=== PATIENT | female | born 1980 | race Caucasian/White ===

== ENCOUNTER 2016-10-10 09:43 | Emergency (ER) | payer BC ==
[~2016-10-10] VITALS: Ht 167.6 cm; Wt 68.0 kg
[~2016-10-10 09:43] MED LIST: CEPH500C3 PO; Z.0.BCPILL PO
[2016-10-10 09:46] VITALS: BP 122/89; PULSE 86; RESP 16; TEMP 97.8; O2SAT 98
--- NOTE | 2016-10-10 11:22 | PD ---
HPI Chief Complaint: Seizure Stated Complaint: POSS SEIZURE Time Seen by Provider: 11:20 Travel History International Travel<30 days: No Contact w/Intl Traveler<30days: No Known affected area: No History of Present Illness HPI 36-year-old female with history of seizure disorder as a child, presents to emergency department for evaluation of possible seizure this morning. Patient states that was on 6:30 AM when she got up to go the restroom. She states the next thing she knows her found her on the ground. She is uncertain of incontinence simply because she was on the toilet. She did not bite her tongue. She states that she has not felt well since the accident. Unknown but states she is trying to get . Patient does have PCO at the last menstrual spotting was in August History Social History Alcohol Use: Yes (socially) Tobacco Use: No Allergies-Medications (Allergen,Severity, Reaction): Coded Allergies: Percocet (Verified Allergy, Severe, HIVES, 04/06/15) Reported Meds & Prescriptions Reported Meds & Active Scripts Active Keflex (Cephalexin Monohydrate) 500 Mg Cap 500 Mg PO QID Reported Control Pills (Miscellaneous Medication) Tab 1 Tab PO DAILY Review of Systems Except as stated in HPI: all other systems reviewed are Neg Physical Exam Narrative GENERAL: Well-nourished female patient, ambulatory with a nonantalgic gait, in no acute distress SKIN: Warm and dry. HEAD: Atraumatic. Normocephalic. EYES: No scleral icterus. No injection or drainage. EOMI. PERRL ENT: No nasal bleeding or discharge. Mucous membranes pink and moist. NECK: Trachea midline. No JVD. CARDIOVASCULAR: Regular rate and rhythm. No murmur appreciated. RESPIRATORY: No accessory muscle use. Clear to auscultation. Breath sounds equal bilaterally. GASTROINTESTINAL: Abdomen soft, non-tender, nondistended. Hepatic and splenic margins not palpable. MUSCULOSKELETAL: No obvious deformities. No clubbing. No cyanosis. No edema. NEUROLOGICAL: Awake and alert. No obvious cranial nerve deficits. Motor grossly within normal limits. Normal speech. PSYCHIATRIC: Appropriate mood and affect; insight and judgment normal. Data Data Last Documented VS Vital Signs Date Time Temp Pulse Resp B/P Pulse Ox O2 Delivery O2 Flow Rate FiO2 10/10/16 09:46 97.8 86 16 122/89 98 Room Air Orders Blood Glucose (10/10/16 09:57) Oximetry (10/10/16 09:57) Iv Access Insert/Monitor (10/10/16 09:57) Ecg Monitoring (10/10/16 09:57) Oxygen Administration (10/10/16 09:57) Basic Metabolic Panel (Bmp) (10/10/16 09:57) Electrocardiogram (10/10/16 ) Ed Urine Pregnancytest Poc (10/10/16 09:59) Complete Blood Count With Diff (10/10/16 11:18) Ct Brain W/O Iv Contrast(Rout) (10/10/16 ) Mri Brain W&W/O Contrast (10/10/16 ) Labs Laboratory Tests Test 10/10/16 11:10 White Blood Count 7.5 TH/MM3 Red Blood Count 4.56 MIL/MM3 Hemoglobin 13.8 GM/DL Hematocrit 41.3 % Mean Corpuscular Volume 90.5 FL Mean Corpuscular Hemoglobin 30.3 PG Mean Corpuscular Hemoglobin 33.5 % Concent Red Cell Distribution Width 12.8 % Platelet Count 442 TH/MM3 Mean Platelet Volume 7.4 FL Neutrophils (%) (Auto) 76.5 % Lymphocytes (%) (Auto) 18.5 % Monocytes (%) (Auto) 3.8 % Eosinophils (%) (Auto) 0.5 % Basophils (%) (Auto) 0.7 % Neutrophils # (Auto) 5.8 TH/MM3 Lymphocytes # (Auto) 1.4 TH/MM3 Monocytes # (Auto) 0.3 TH/MM3 Eosinophils # (Auto) 0.0 TH/MM3 Basophils # (Auto) 0.1 TH/MM3 CBC Comment DIFF FINAL Differential Comment Sodium Level 136 MEQ/L Potassium Level 4.2 MEQ/L Chloride Level 100 MEQ/L Carbon Dioxide Level 25.6 MEQ/L Anion Gap 10 MEQ/L Blood Urea Nitrogen 11 MG/DL Creatinine 0.64 MG/DL Estimat Glomerular Filtration 106 ML/MIN Rate Random Glucose 83 MG/DL Calcium Level 10.1 MG/DL [facility] Medical Decision Making Medical Screen Exam Complete: Yes Emergency Medical Condition: Yes Medical Record Reviewed: Yes Differential Diagnosis Seizure versus syncope versus near-syncope versus electrolyte abnormality Narrative Course 36-year-old female presents to emergency department for evaluation of possible seizure. Patient has not had a seizure in 15 years and is not currently on any medication. She appears well and without distress. Neuro exam is nonfocal. Workup is initiated in triage. CBC and BMP are without acute concern. CT imaging of the brain is without acute intracranial abnormality and MRI with and without contrast is recommended by radiology. I discussed this with the patient. This is ordered. Once a medical bed becomes available, patient will be transferred and care will be assumed by the provider in that pod. Diagnosis Primary Impression: History of seizure Condition: Stable Svetlana Brunner Oct 10, 2016 11:22
[2016-10-10 11:50] LABS: AUTOMATED NEUTROPHIL # 5.8 TH/MM3 (1.8-7.7); BASOPHIL # 0.1 TH/MM3 (0-0.2); BASOPHIL % 0.7 % (0.0-2.0); EOSINOPHIL % 0.5 % (0.0-4.0); HEMATOCRIT 41.3 % (35.0-46.0); HEMO FLAGS DIFF FINAL; LYMPH % 18.5 % (9.0-44.0); LYMPHOCYTE # 1.4 TH/MM3 (1.0-4.8); MEAN CELL VOLUME 90.5 FL (80.0-100.0); MEAN CORPUSCULAR HEMOGLOBIN 30.3 PG (27.0-34.0); MEAN CORPUSCULAR HGB CONC 33.5 % (32.0-36.0); MONO % 3.8 % (0.0-8.0); NEUT % 76.5 % (16.0-70.0); PLATELET COUNT 442 TH/MM3 (150-450); RED BLOOD COUNT 4.56 MIL/MM3 (4.00-5.30); RED CELL DISTRIBUTION WIDTH 12.8 % (11.6-17.2); WHITE BLOOD COUNT 7.5 TH/MM3 (4.0-11.0)
[2016-10-10 12:06] LABS: BICARBONATE 25.6 MEQ/L (21.0-32.0); POTASSIUM 4.2 MEQ/L (3.5-5.1)
--- NOTE | 2016-10-10 12:20 | EKG ---
Date Performed: 10/10/2016 Time Performed: 11:00:01 PTAGE: 36 years EKG: Sinus rhythm NORMAL ECG PREVIOUS TRACING : 09/17/2014 11.37 DOCTOR: Misael Leyva Interpretating Date/Time 10/10/2016 12:19:24
--- NOTE | 2016-10-10 12:29 | RADRPT ---
EXAM DATE/TIME: 10/10/2016 12:14 [facility] COMPARISON: No previous studies available for comparison. INDICATIONS : Possible seizure. RADIATION DOSE: 56.35 CTDIvol (mGy) MEDICAL HISTORY : None SURGICAL HISTORY : None. ENCOUNTER: Initial ACUITY: 1 day PAIN SCALE: 0/10 LOCATION: cranial TECHNIQUE: Multiple contiguous axial images were obtained of the head. Using automated exposure control and adj ustment of the mA and/or kV according to patient size, radiation dose was kept as low as reasonably a chievable to obtain optimal diagnostic quality images. FINDINGS: CEREBRUM: The ventricles are normal for age. No evidence of midline shift, mass lesion, hemorrhage or acute in farction. No extra-axial fluid collections are seen. POSTERIOR FOSSA: The cerebellum and brainstem are intact. The 4th ventricle is midline. The cerebellopontine angle i s unremarkable. EXTRACRANIAL: The visualized portion of the orbits is intact. SKULL: The calvaria is intact. No evidence of skull fracture. CONCLUSION: Negative. MRI of the brain without and with contrast is suggested. Liborio Mcfarlane MD FACR on October 10, 2016 at 12:27 Board Certified Radiologist. This report was verified electronically.
[2016-10-10 13:12] VITALS: O2SAT 98
[2016-10-10] MEDS ORDERED: GADODIAMIDE PF 287 MG/ML 5 ML VIAL (for RAD MRI) IV ONE (13:50)
--- NOTE | 2016-10-10 14:02 | RADRPT ---
EXAM DATE/TIME: 10/10/2016 13:07 [facility] COMPARISON: No previous studies available for comparison. INDICATIONS : Seizures. CONTRAST: 13 cc Omniscan (gadodiamide) IV MEDICAL HISTORY : Seizures. SURGICAL HISTORY : Cholecystectomy. ENCOUNTER: Subsequent ACUITY: 1 day PAIN SCORE: 0/10 LOCATION: head. TECHNIQUE: Multiplanar, multisequence MRI of the brain was performed both prior to and following the administrat ion of paramagnetic contrast. FINDINGS: CEREBRUM: The ventricles are normal for age. No evidence of midline shift, mass lesion, hemorrhage or acute in farction. No extraaxial fluid collections are seen. The pituitary gland and suprasellar cistern are normal in configuration. WHITE MATTER: No significant signal abnormalities are seen in the white matter. POSTERIOR FOSSA: The cerebellum and brainstem are intact. The 4th ventricle is midline. The cerebellopontine angle is unremarkable. The cerebellar tonsils are normal in position. DIFFUSION IMAGING: No focal areas of restricted diffusion are seen. No evidence of acute infarction. EXTRACRANIAL: The visualized portions of the orbits and paranasal sinuses are unremarkable. POST-CONTRAST: No abnormal areas of parenchymal or dural enhancement. No evidence of blood-brain barrier breakdown. CONCLUSION: Normal examination. Juan Weiss MD on October 10, 2016 at 13:57 Board Certified Radiologist. This report was verified electronically.
[2016-10-10 14:07] VITALS: BP 116/73; PULSE 82; RESP 16; TEMP 97.8; O2SAT 98
[2016-10-10] MEDS ORDERED: ZANT150T2 PO (14:13)
--- NOTE | 2016-10-10 14:14 | PD ---
Data Data Last Documented VS Vital Signs Date Time Temp Pulse Resp B/P Pulse Ox O2 Delivery O2 Flow Rate FiO2 10/10/16 14:08 98 Room Air 10/10/16 14:07 97.8 82 16 116/73 Orders Blood Glucose (10/10/16 09:57) Oximetry (10/10/16 09:57) Iv Access Insert/Monitor (10/10/16 09:57) Ecg Monitoring (10/10/16 09:57) Oxygen Administration (10/10/16 09:57) Basic Metabolic Panel (Bmp) (10/10/16 09:57) Electrocardiogram (10/10/16 ) Ed Urine Pregnancytest Poc (10/10/16 09:59) Complete Blood Count With Diff (10/10/16 11:18) Ct Brain W/O Iv Contrast(Rout) (10/10/16 ) Mri Brain W&W/O Contrast (10/10/16 ) Gadodiamide Pf Inj (Omniscan Pf Inj) (10/10/16 13:50) Labs Laboratory Tests Test 10/10/16 11:10 White Blood Count 7.5 TH/MM3 Red Blood Count 4.56 MIL/MM3 Hemoglobin 13.8 GM/DL Hematocrit 41.3 % Mean Corpuscular Volume 90.5 FL Mean Corpuscular Hemoglobin 30.3 PG Mean Corpuscular Hemoglobin 33.5 % Concent Red Cell Distribution Width 12.8 % Platelet Count 442 TH/MM3 Mean Platelet Volume 7.4 FL Neutrophils (%) (Auto) 76.5 % Lymphocytes (%) (Auto) 18.5 % Monocytes (%) (Auto) 3.8 % Eosinophils (%) (Auto) 0.5 % Basophils (%) (Auto) 0.7 % Neutrophils # (Auto) 5.8 TH/MM3 Lymphocytes # (Auto) 1.4 TH/MM3 Monocytes # (Auto) 0.3 TH/MM3 Eosinophils # (Auto) 0.0 TH/MM3 Basophils # (Auto) 0.1 TH/MM3 CBC Comment DIFF FINAL Differential Comment Sodium Level 136 MEQ/L Potassium Level 4.2 MEQ/L Chloride Level 100 MEQ/L Carbon Dioxide Level 25.6 MEQ/L Anion Gap 10 MEQ/L Blood Urea Nitrogen 11 MG/DL Creatinine 0.64 MG/DL Estimat Glomerular Filtration 106 ML/MIN Rate Random Glucose 83 MG/DL Calcium Level 10.1 MG/DL MDM Supervised Visit with TOAN: Yes Narrative Course The history, exam, and medical decision-making in the associated midlevel provider note were completed with my assistance. I reviewed and agree with the findings presented. I attest that I had a [id number] encounter with the patient on the same day, and personally performed and documented my assessment and findings in the medical record. *My assessment and Findings: This is a 36-year-old female who presents to the emergency department having had an episode of syncope versus seizure this morning. She has a history of childhood seizures but currently is not on any seizure medication. She had labs performed which are reassuring, head CT and MRI imaging all of which is reassuring. Her description of her symptoms is more consistent with syncope. I still think she should follow with a neurologist given her seizure history. Patient was discharged home and told to avoid driving another risky behaviors while at risk of seizure. Diagnosis Primary Impression: Syncope Qualified Code: R55 - Syncope, unspecified syncope type Referrals: Skyler Garcia MD Patient Instructions: General Instructions Additional Instruction: If you develop severe worsening headache, persistent vomiting, numbness, weakness, difficulty walking or difficulty talking return to the emergency department immediately. Follow-up with a neurologist as soon as possible. Avoid driving, swimming and other activities that might be dangerous if he had a seizure during them. Med/Other Pt SpecificInfo: No Change to Meds Disposition: 01 DISCHARGE HOME Condition: Stable Vernell Silverio MD Oct 10, 2016 14:13
[2016-10-10 14:49] VITALS: BP 120/78; PULSE 85; RESP 16; TEMP 97.8; O2SAT 98
== END 2016-10-10 18:34 | disposition home or self-care (01) ==
LOC: NEPE 09:43
DX: R55 Syncope and collapse (principal); Z87.898 Personal history of other specified conditions; R56.9 Unspecified convulsions
CPT/HCPCS: 70450; 70553; 80048; 84703; 85025; 93005; 99284; A9579

== ENCOUNTER 2017-04-05 14:23 | Observation (INO) | payer BC ==
--- NOTE | 2017-04-05 15:26 | MH ---
cc: CONCEPCION JUAN MD DATE OF ADMISSION 04/05/2017 ADMITTING DIAGNOSIS 1. at 7 weeks. 2. Nausea and vomiting, possible gastroenteritis. HISTORY OF PRESENT ILLNESS The patient is a 37-year-old white female, para 1-0-0-1, LMP of 02/09/2017, EDC of 11/16/2017. Ultrasound obtained on 04/04/2017 showed a VIP consistent with her EDC. She had acute onset of nausea and vomiting at 9:30 p.m. on 04/04/2017 and awoke this morning of 05:00 with persistent nausea and vomiting. She has tried Zofran without relief, cannot keep down any solids or liquids, is now admitted for IV fluid hydration and for antiemetic therapy. She denies fever or flu-like illness. She had normal bowel function yesterday. MEDICATIONS 1. Vitamins. 2. Prometrium 200 milligrams p.o. b.i.d. ALLERGIES PERCOCET AND LEVAQUIN. TRANSFUSIONS None. OBSTETRICAL HISTORY One vaginal delivery at term 2014. Spontaneous 2016. No D&C. PAST SURGERIES Cholecystectomy 2004, ____ 2001. MEDICAL ILLNESS Seizure disorder early 2016, eval negative through neurologist. 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 Alcohol, tobacco and drugs are none. PHYSICAL EXAMINATION GENERAL: This is an ill appearing white female. VITAL SIGNS: Stable. HEENT: Exam within normal limits. CHEST: The was chest is clear. BREASTS: Symmetrical. ABDOMEN: Benign. PELVIC EXAMINATION: Vagina is normal. Cervix normal. Uterus 7 weeks' size, nontender. ASSESSMENT As above. PLAN She is now admitted for IV fluids, IV antiemetic therapy. Reviewed the indications for treatment, the patient would like to proceed. Concepcion Juan MD JAW/EO /3:04 PM /3:11 PM
[2017-04-05] MEDS ORDERED: ONDANSETRON HCL 4 MG/2 ML VIAL ONE (15:33)
[2017-04-05 15:38] VITALS: BP 110/65; PULSE 90; RESP 16; TEMP 98.6; O2SAT 98
[2017-04-05] MEDS: SODIUM CHLOR 0.9% 1000 ML INJ 1,000 ML IV ONE ×2 (16:30→18:19)
[2017-04-05] MEDS ORDERED: METOCLOPRAMIDE HCL 10 MG/2 ML VIAL IV PRN (16:45)
[2017-04-05] MEDS: D5-1/2 NS + KCL 20 MEQ INJ 1,000 ML IV SCH (16:54)
[2017-04-05] MEDS: ONDANSETRON HCL 4 MG/2 ML VIAL IV SCH ×2 (16:59→22:19)
[2017-04-05] MEDS ORDERED: NON-FORMULARY DRUG IM PRN (19:00)
[2017-04-05 19:45] VITALS: BP 102/55; PULSE 91; RESP 17; TEMP 98.7; O2SAT 98
[2017-04-05 22:37] LABS: AUTOMATED NEUTROPHIL # 9.7 TH/MM3 (1.8-7.7); BASOPHIL % 0.2 % (0.0-2.0); EOSINOPHIL % 0.1 % (0.0-4.0); HEMATOCRIT 33.7 % (35.0-46.0); HEMO FLAGS DIFF FINAL; LYMPH % 3.8 % (9.0-44.0); LYMPHOCYTE # 0.4 TH/MM3 (1.0-4.8); MEAN CELL VOLUME 89.7 FL (80.0-100.0); MEAN CORPUSCULAR HEMOGLOBIN 30.3 PG (27.0-34.0); MEAN CORPUSCULAR HGB CONC 33.8 % (32.0-36.0); MONO % 3.4 % (0.0-8.0); NEUT % 92.5 % (16.0-70.0); PLATELET COUNT 266 TH/MM3 (150-450); RED BLOOD COUNT 3.75 MIL/MM3 (4.00-5.30); RED CELL DISTRIBUTION WIDTH 12.4 % (11.6-17.2); WHITE BLOOD COUNT 10.5 TH/MM3 (4.0-11.0)
[2017-04-05 22:57] LABS: BICARBONATE 25.4 MEQ/L (21.0-32.0); POTASSIUM 3.7 MEQ/L (3.5-5.1)
[2017-04-05 23:10] LABS: CALCIUM-PROTEIN CORRECTED 7.8 MG/DL (8.5-10.1)
[2017-04-05 23:22] VITALS: BP 108/56; PULSE 87; RESP 17; TEMP 98.3; O2SAT 99
[2017-04-06] MEDS: D5-1/2 NS + KCL 20 MEQ INJ 1,000 ML IV SCH ×3 (00:26→13:55)
[2017-04-06 03:22] VITALS: BP 116/57; PULSE 78; RESP 17; TEMP 98; O2SAT 99
[2017-04-06] MEDS: ONDANSETRON HCL 4 MG/2 ML VIAL IV SCH ×2 (05:20→11:28)
[2017-04-06 07:58] VITALS: BP 94/53; PULSE 81; RESP 18; TEMP 98.2; O2SAT 98
[2017-04-06 11:21] VITALS: BP 93/51; PULSE 84; RESP 16; TEMP 98.3; O2SAT 98
--- NOTE | 2017-04-06 13:30 | HHI.DCPOC ---
Discharge Care Plan Report Symptoms to Your Doctor -Temperature above 100.5 degrees -Redness, of incision or excessive or foul smelling drainage -Unusual pain or calf pain -Increased vaginal bleeding -Painful or difficulty urinating -Feelings of extreme sadness or anxiety after 2 weeks Goals to Promote Your Health * To prevent worsening of your condition and complications * To maintain your health at the optimal level Directions to Meet Your Goals Take your medications as prescribed Follow your dietary instruction Follow activity as directed Ensure plenty of rest for recovery Drink fluids for hydration Keep your appointments as scheduled Take your immunizations and boosters as scheduled If your symptoms worsen call your PCP, if no PCP go to Urgent Care Center or Emergency Room Smoking is Dangerous to Your Health. Avoid second hand smoke Call the 24-hour crisis hotline for domestic abuse at Luis Phan MD Apr 06, 2017 13:30
== END 2017-04-06 14:40 | disposition home or self-care (01) ==
LOC: NEPHCDU 14:49
PROVIDERS: ADMIT Obstetrics & Gynecology; ATTEND Obstetrics & Gynecology
DX: O21.9 Vomiting of pregnancy, unspecified (principal); Z3A.01 Less than 8 weeks gestation of pregnancy
CPT/HCPCS: 80048; 82150; 84155; 85025; G0378; J2405; J3480; J7030

== ENCOUNTER → 2017-05-15 | Outpatient (CLI) | payer BC | LOC: HPND 09:32 | PROVIDERS: ATTEND Obstetrics & Gynecology | DX: O09.521 Supervision of elderly multigravida, first trimester (principal); O09.291 Supervision of pregnancy with other poor reproductive or obstetric history, first trimester | CPT/HCPCS: 36415; 76813 ==

== ENCOUNTER → 2017-06-26 | Outpatient (CLI) | payer BC | LOC: HPND 09:33 | PROVIDERS: ATTEND Obstetrics & Gynecology | DX: O09.522 Supervision of elderly multigravida, second trimester (principal); O09.292 Supervision of pregnancy with other poor reproductive or obstetric history, second trimester; O35.1XX0 Maternal care for (suspected) chromosomal abnormality in fetus, not applicable or unspecified; O24.410 Gestational diabetes mellitus in pregnancy, diet controlled | CPT/HCPCS: 76811 ==

== ENCOUNTER → 2017-07-24 | Outpatient (CLI) | payer BC | LOC: HPND 10:19 | PROVIDERS: ATTEND Obstetrics & Gynecology | DX: O24.410 Gestational diabetes mellitus in pregnancy, diet controlled (principal); O09.522 Supervision of elderly multigravida, second trimester; O35.1XX0 Maternal care for (suspected) chromosomal abnormality in fetus, not applicable or unspecified | CPT/HCPCS: 76816 ==

== ENCOUNTER → 2017-08-26 | Outpatient (CLI) | payer BC | LOC: HPND 09:18 | PROVIDERS: ATTEND Obstetrics & Gynecology | DX: O35.1XX0 Maternal care for (suspected) chromosomal abnormality in fetus, not applicable or unspecified (principal); O24.410 Gestational diabetes mellitus in pregnancy, diet controlled; O09.522 Supervision of elderly multigravida, second trimester | CPT/HCPCS: 76816 ==

== ENCOUNTER 2017-10-12 00:28 | Emergency (ER) | payer BC ==
[~2017-10-12] VITALS: Ht 167.6 cm; Wt 88.0 kg
[2017-10-12 00:28] VITALS: BP 147/77; PULSE 83; RESP 18; TEMP 97.7; O2SAT 99
[2017-10-12 01:07] VITALS: BP 116/78; PULSE 90
--- NOTE | 2017-10-12 01:28 | PD ---
HPI Chief Complaint Headache Date Seen: Oct 12, 2017 Time Seen: 01:20 Travel History International Travel<30 Days: No Contact w/Intl Traveler<30Days: No Known Affected Area: No History of Present Illness HPI 37-year-old 3 para 1 AB 1 at 35+ weeks gestation who comes tonight concerned that her blood pressure might be up because she has a headache. She has a history of elevated blood pressure in her prior . She also has a history of migraine headaches. She states this feels typical of her migraine headaches. She tried Tylenol at home without relief in addition to peppermint oil. She denies any visual changes, abdominal pain. No decreased movement, bleeding or discharge. History Past Medical History Medical History: Denies Significant Hx Obstetric History Obstetric History 1 term vaginal delivery, 1 SAB Gestational diabetes which is diet controlled, advanced maternal age Past Surgical History Narrative Surgical Cholecystectomy, breast augmentation Family History Family History: Negative Social History Alcohol Use: No Tobacco Use: No Substance Abuse: No Allergies-Medications (Allergen,Severity, Reaction): Coded Allergies: acetaminophen (Unverified Allergy, Severe, HIVES, 05/21/17) oxycodone (Unverified Allergy, Severe, HIVES, 05/21/17) levofloxacin (Verified Allergy, Unknown, 10/12/17) 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 SKIN: Warm and dry. HEAD: Normocephalic and atraumatic. EYES: No scleral icterus. No injection or drainage. ENT: No nasal drainage noted. Mucous membranes pink. Airway patent. NECK: Supple, trachea midline. No JVD. CARDIOVASCULAR: Regular rate and rhythm without murmurs, gallops, or rubs. RESPIRATORY: Breath sounds equal bilaterally. No accessory muscle use. ABDOMEN/GI: Abdomen soft, non-tender, bowel sounds present, no rebound, no guarding Gravid to [-] weeks size Fundal Height: [-] GENITOURINARY: External Genitalia: intact and normal in appearance BUS glands: [-] Cervix: [-] Dilatation: [-] Effacement: [-] Station: [-] Presentation: [-] Membranes: [intact or ruptured] Uterine Contractions: [-] FHT's: Category: [-1] Baseline: [-] Reactive: [Yes-] Variability: [-] Decels: [-] EXTREMITIES: No cyanosis or edema. BACK: Nontender without obvious deformity. No CVA tenderness. NEUROLOGICAL: Awake and alert. Motor and sensory grossly within normal limits. Five out of 5 muscle strength in all muscle groups. Normal speech. Data Data Vital Signs Reviewed: Yes Orders Orders Vital Signs (Adult) .ON ADMISSION (10/12/17 01:05) ^ Labor Status (10/12/17 01:05) Urinalysis - C+S If Indicated (10/12/17 01:05) ^ Non Stress Test (10/12/17 01:05) Protein Creat Ratio, Random Ur (10/12/17 01:05) [id number] 325-50-40 Mg (Fioricet 3 (10/12/17 01:30) MDM Medical Record Reviewed: Yes Narrative Course / MDM Assessment: 35 week intrauterine with migraine headache Plan: Fioricet 1 Diagnosis Diagnosis: Primary Impression: 35 weeks gestation of Additional Impression: Migraine headache Disposition: DISCHARGE HOME Condition: Good Scripts No Active Prescriptions or Reported Meds Misael Lobato MD Oct 12, 2017 01:28
[2017-10-12] MEDS ORDERED: ACETAMIN 325 MG/BUTALBITAL 50 MG/CAFFEINE 40 MG TAB PO ONE (01:30)
[2017-10-12 01:52] LABS: BACTERIA, URINE RARE /hpf; BILIRUBIN, URINE NEG (NEG); BLOOD, URINE NEG (NEG); GLUCOSE,URINE NEG (NEG); KETONE, URINE NEG (NEG); NITRITE,URINE NEG (NEG); PH, URINE 6.5 (5.0-8.5); SQUAMOUS EPITHELIAL CELL URINE 15 /hpf (0-5); URINE COLOR LIGHT-YELLOW (YELLW/STRAW); URINE LEUKOCYTE ESTERASE LARGE (NEG)
== END 2017-10-12 02:05 | disposition home or self-care (01) ==
LOC: HOBED 00:28
DX: O26.893 Other specified pregnancy related conditions, third trimester (principal); G43.909 Migraine, unspecified, not intractable, without status migrainosus; Z3A.35 35 weeks gestation of pregnancy; Z88.6 Allergy status to analgesic agent; Z88.5 Allergy status to narcotic agent; Z88.8 Allergy status to other drugs, medicaments and biological substances; Z34.93 Encounter for supervision of normal pregnancy, unspecified, third trimester
CPT/HCPCS: 81001; 82570; 84156; 87086; 99284

== ENCOUNTER 2017-10-15 16:13 | Emergency (ER) | payer BC ==
[2017-10-15] MEDS ORDERED: ONDANSETRON HCL 4 MG/2 ML VIAL IV PUSH ONE (17:00)
[2017-10-15] MEDS ORDERED: LACTATED RINGER'S 1000 ML INJ 1,000 ML IV ONE (17:00)
[2017-10-15] MEDS ORDERED: PROMETHAZINE INJ 25 MG/ML VIAL IM ONE (17:00)
--- NOTE | 2017-10-15 17:18 | PD ---
HPI Chief Complaint headache Date Seen: Oct 15, 2017 Time Seen: 17:11 Travel History International Travel<30 Days: No Contact w/Intl Traveler<30Days: No Known Affected Area: No History of Present Illness HPI 37yo at 35 weeks gestationan c/o headache. Has a h/o migraines pre and came in Saturday for headache treated with Fioricet. Headache returned this am. Has distant h/o seizure disorder diagnosed as a child with rare occurrence as an adult. Not on antiepileptic medication. Denies abdominal pain, [place], or edema. H/o PIH in previous . 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 SKIN: Warm and dry. HEAD: Normocephalic and atraumatic. EYES: No scleral icterus. No injection or drainage. ENT: No nasal drainage noted. Mucous membranes pink. Airway patent. NECK: Supple, trachea midline. No JVD. CARDIOVASCULAR: Regular rate and rhythm without murmurs, gallops, or rubs. RESPIRATORY: Breath sounds equal bilaterally. No accessory muscle use. BREASTS: Bilateral exam showed no masses , no retractions, no nipple discharge. ABDOMEN/GI: Abdomen soft, non-tender, bowel sounds present, no rebound, no guarding Gravid to [35-] weeks size Fundal Height: [-] GENITOURINARY: deferred External Genitalia: intact and normal in appearance BUS glands: [-] Cervix: [-] Dilatation: [-] Effacement: [-] Station: [-] Presentation: [-] Membranes: [intact or ruptured] Uterine Contractions: [-] FHT's: Category: [1-] Baseline: [140-] Reactive: [-mod] Variability: [mod-] Decels: [absent-] EXTREMITIES: No cyanosis or edema. BACK: Nontender without obvious deformity. No CVA tenderness. NEUROLOGICAL: Awake and alert. Motor and sensory grossly within normal limits. Five out of 5 muscle strength in all muscle groups. Normal speech. Data Data Vital Signs Reviewed: Yes Orders Orders Vital Signs (Adult) .ON ADMISSION (10/15/17 16:51) ^ Labor Status (10/15/17 16:51) ^ Non Stress Test (10/15/17 16:51) Diet Liquid (10/15/17 Dinner) Ondansetron Inj (Zofran Inj) (10/15/17 17:00) Lactated Ringer's 1000 Ml Inj (Lr 1000 M (10/15/17 17:00) Promethazine Inj (Phenergan Inj) (10/15/17 17:00) MDM Scripts No Active Prescriptions or Reported Meds Gloria Pavon MD Oct 15, 2017 17:18
[2017-10-15] MEDS ORDERED: PROM25TA10 PO (18:03)
== END 2017-10-15 21:02 | disposition home or self-care (01) ==
LOC: HOBED 16:13
DX: O26.893 Other specified pregnancy related conditions, third trimester (principal); R51 Headache; Z3A.35 35 weeks gestation of pregnancy
CPT/HCPCS: 59025; 96372; 96374; 99284; J2405; J2550; J7120

== ENCOUNTER 2017-10-28 15:28 | Emergency (ER) | payer BC ==
[~2017-10-28 15:28] MED LIST changes: -CEPH500C3 PO; +PROM25TA10 PO; -Z.0.BCPILL PO
[2017-10-28] MEDS ORDERED: PRENTAB7 PO (16:35)
--- NOTE | 2017-10-28 17:00 | PD ---
HPI Chief Complaint Abdominal pressure Date Seen: Oct 28, 2017 Time Seen: 16:00 Travel History International Travel<30 Days: No Contact w/Intl Traveler<30Days: No Known Affected Area: No History of Present Illness HPI Patient is a 34 year old at 37 weeks and 2 days who presents to OB triage complaining of abdominal pressure and irregular contractions since this morning. She describes the pressure as a pain/feeling as if her abdomen is ripped open. The pressure pain has been constant since 5 a.m. this morning. The pressure pain woke her up and has not led up despite rest. She reports nausea but denies vomiting. She reports two episodes of diarrhea this morning. The patient reports irregular contractions. She has been having contractions on and off for weeks but today the contractions are not going away. She describes the contraction as a discomfort that starts over the superior abdomen, moving inferior and laterally toward the right. She denies vaginal bleeding and gush of fluid. She reports positive movement. Of note, patient was diagnosed with gestational diabetes at 16 or 20 weeks gestation. Gestational diabetes has been diet controlled. She reports fasting glucose of 90-105. Weeks Gestation: 37 Para: 1 : 3 Miscarriage: 1 History Past Medical History Narrative Medical Epilepsy - experiences one seizure every 10-15 years; last seizure October 2016 ; not on medications Obstetric History Obstetric History G1 - delivered December 2014; vaginal delivery at 38 weeks; gestational diabetes and hypertension G2 - miscarriage in December 2016. Past Surgical History Narrative Surgical Adenoidectomy Ear tubes Breast augmentation Cholecystectomy Family History Family History: Negative Social History Alcohol Use: No Tobacco Use: No Substance Abuse: No Allergies-Medications (Allergen,Severity, Reaction): Coded Allergies: acetaminophen (Unverified Allergy, Severe, HIVES, 05/21/17) oxycodone (Unverified Allergy, Severe, HIVES, 05/21/17) levofloxacin (Verified Allergy, Unknown, 10/12/17) PT SAID SHE GOES PSYCHOTIC CANT FUNCTION Home Meds Active Scripts Pnv No.95/Ferrous Fum/Folic AC ( Vitamins Tablet) 28 Mg Iron-800 Mcg Tablet, 1 TAB PO DAILY, #30 TAB Prov:Rosa Howell MD R1 10/28/17 Discontinued Scripts Promethazine (Phenergan) 25 Mg Tablet, 25 MG PO ONCE Y for headache, #10 TAB 0 Refills Prov:Gloria Pavon MD 10/15/17 Review of Systems Except as stated in HPI: all other systems reviewed are Neg Physical Exam Narrative GENERAL: Well-nourished, well-developed patient. SKIN: Warm and dry. HEAD: Normocephalic and atraumatic. EYES: No scleral icterus. No injection or drainage. ENT: No nasal drainage noted. Mucous membranes pink. Airway patent. NECK: Supple, trachea midline. No JVD. CARDIOVASCULAR: Regular rate and rhythm without murmurs, gallops, or rubs. RESPIRATORY: Breath sounds equal bilaterally. No accessory muscle use. ABDOMEN/GI: Abdomen soft, non-tender, bowel sounds present, no rebound, no guarding Gravid to 37 weeks size GENITOURINARY per nursing: External Genitalia: intact and normal in appearance Dilatation: 1 cm Effacement: 50% Station: -3 Membranes: Intact Uterine Contractions: None FHT's: Category: 1 Baseline: 130 Reactive: Reactive Variability: Moderate Decels: None EXTREMITIES: No cyanosis or edema. BACK: Nontender without obvious deformity. No CVA tenderness. NEUROLOGICAL: Awake and alert. Motor and sensory grossly within normal limits. Five out of 5 muscle strength in all muscle groups. Normal speech. Data Data Vital Signs Reviewed: Yes MDM Plan Patient is a 34 year old at 37 weeks and 2 days who presents to OB triage complaining of abdominal pressure and irregular contractions since this morning. Patient sees Dr. Phan for care. * IUP - Category: 1, baseline: 130, reactive, variability: moderate, decels: none. * Encouraged PO hydration. * Discussed pain control. Discussed with OB hospitalist. Diagnosis Diagnosis: Primary Impression: Abdominal pressure Additional Impression: Irregular contractions Disposition: 01 DISCHARGE HOME Condition: Stable Rosa Howell MD R1 Oct 28, 2017 17:00
== END 2017-10-28 17:06 | disposition home or self-care (01) ==
LOC: HOBED 15:28
DX: O47.1 False labor at or after 37 completed weeks of gestation (principal); O24.410 Gestational diabetes mellitus in pregnancy, diet controlled; Z3A.37 37 weeks gestation of pregnancy
CPT/HCPCS: 59025

== ENCOUNTER 2017-11-09 06:09 | Inpatient (IN) | payer BC ==
[2017-11-09] VITALS (69 sets, daily range): BP systolic 85–142; BP diastolic 32–93; PULSE 68–120; RESP 16–19; TEMP 97.8–98.2; O2SAT 91
[~2017-11-09] VITALS: Ht 167.6 cm; Wt 90.7 kg
[~2017-11-09 06:09] MED LIST changes: +PRENTAB7 PO; -PROM25TA10 PO
[2017-11-09] MEDS ORDERED: PRIL20TA2 (06:57)
[2017-11-09] MEDS ORDERED: NS 1000 ML IV PRN (07:15)
[2017-11-09] MEDS ORDERED: ONDANSETRON HCL 4 MG/2 ML VIAL IV PUSH PRN (07:15)
[2017-11-09] MEDS ORDERED: LIDOCAINE HCL 1% 50 ML VIAL I-DERMAL PRN (07:15)
[2017-11-09] MEDS ORDERED: NS 500 ML BOLUS IV PRN (07:15)
[2017-11-09] MEDS ORDERED: OXYTOCIN 30 UNITS 500ML PREMIX IV ONE (07:15)
[2017-11-09] MEDS ORDERED: MINERAL OIL 10 ML VIAL TOPICAL PRN (07:15)
[2017-11-09] MEDS ORDERED: LIDOCAINE HCL 1% 50 ML VIAL INFIL PRN (07:15)
[2017-11-09] MEDS ORDERED: CITRIC ACID-SODIUM CITRATE LIQ 30 ML UDC PO SCH (07:15)
[2017-11-09] MEDS ORDERED: OXYTOCIN 30 UNITS/NS 500ML PREMIX IV PRN (07:15)
[2017-11-09] MEDS ORDERED: LACTATED RINGER'S 1000 ML BOLUS IV PRN (07:15)
[2017-11-09] MEDS: LACTATED RINGER'S 1000 ML IV SCH ×2 (07:24→15:15)
[2017-11-09] MEDS ORDERED: fentaNYL 2MCG-BUPIV 0.125% INJ 100 ML ONE (07:24)
[2017-11-09 07:30] LABS: AUTOMATED NEUTROPHIL # 7.2 TH/MM3 (1.8-7.7); BASOPHIL # 0.1 TH/MM3 (0-0.2); BASOPHIL % 0.5 % (0.0-2.0); EOSINOPHIL # 0.1 TH/MM3 (0-0.4); EOSINOPHIL % 0.6 % (0.0-4.0); HEMATOCRIT 34.2 % (35.0-46.0); HEMOGLOBIN 11.7 GM/DL (11.6-15.3); LYMPH % 18.2 % (9.0-44.0); LYMPHOCYTE # 1.8 TH/MM3 (1.0-4.8); MEAN CORPUSCULAR HEMOGLOBIN 30.4 PG (27.0-34.0); MEAN CORPUSCULAR HGB CONC 34.2 % (32.0-36.0); MEAN PLATELET VOLUME 9.1 FL (7.0-11.0); MONO % 6.7 % (0.0-8.0); MONOCYTE # 0.7 TH/MM3 (0-0.9); PLATELET COUNT 289 TH/MM3 (150-450); RED BLOOD COUNT 3.84 MIL/MM3 (4.00-5.30); RED CELL DISTRIBUTION WIDTH 13.3 % (11.6-17.2); WHITE BLOOD COUNT 9.8 TH/MM3 (4.0-11.0)
[2017-11-09 07:35] LABS: BACTERIA, URINE FEW /hpf; BILIRUBIN, URINE NEG (NEG); BLOOD, URINE NEG (NEG); GLUCOSE,URINE NEG (NEG); KETONE, URINE NEG (NEG); MUCUS URINE FEW /lpf (OCC); NITRITE,URINE NEG (NEG); SQUAMOUS EPITHELIAL CELL URINE 13 /hpf (0-5); URINE COLOR YELLOW (YELLW/STRAW); URINE LEUKOCYTE ESTERASE LARGE (NEG)
[2017-11-09] MEDS ORDERED: ePHEDrine/NS 25 MG/5 ML SYRINGE ONE (09:38)
[2017-11-09] MEDS ORDERED: DO NOT ADMINISTER ANTICOAGULANTS PRN (10:45)
[2017-11-09] MEDS ORDERED: ePHEDrine/NS 25 MG/5 ML SYRINGE IV PUSH PRN (10:45)
[2017-11-09] MEDS ORDERED: fentaNYL 2MCG-BUPIV 0.125% 100 ML EPIDURAL SCH (10:45)
[2017-11-09] MEDS ORDERED: NO SYSTEM NARCOTICS PRN (10:45)
--- NOTE | 2017-11-09 13:23 | MH ---
cc: CONCEPCION JUAN DATE OF ADMISSION: 11/09/2017 ADMITTING DIAGNOSIS: 1. Term 2. Advanced maternal age. 3. Gestational diabetes. HISTORY OF PRESENT ILLNESS: The patient is a 37-year-old white female para 1-0-1-1 with last menstrual period of 02/09/2017, estimated date of confinement of 11/16/2017. Her preop course has been notable for gestational diabetes well-controlled with diet. She had normal first TM screen and normal panorama testing. GBS culture was negative. PAST MEDICAL HISTORY / PAST SURGICAL HISTORY: 1. Breast augmentation 2001. 2. Cholecystectomy 2004. 3. History of seizure disorder. Negative evaluation through Dr. Alber Carter in 2017. OBSTETRICAL HISTORY: Vaginal delivery in 2014, spontaneous 2017 at six to eight weeks. 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 Alcohol, tobacco and drugs are none. FAMILY HISTORY: Noncontributory. PHYSICAL EXAMINATION: GENERAL: A well-nourished well-developed white female. VITAL SIGNS: Stable. HEAD, EYES, EARS, NOSE, THROAT: Normal. CHEST: Clear. HEART: Regular rate. BREASTS: Symmetrical. ABDOMEN: Benign. Gravid. Estimated weight is about 3400 grams. PELVIC EXAM: Cervix is 3 cm, 70, vertex. AROM clear. ASSESSMENT: As above. Anticipate vaginal delivery, if failure to progress or distress. MD HUSSAIN Henderson/TORREY /12:57 PM /1:05 PM
[2017-11-09] MEDS ORDERED: OXYTOCIN 30 UNITS-500ML PREMIX 500 ML IV SCH (14:45)
[2017-11-09] MEDS ORDERED: ALUMINUM/MAGNESIUM/SIMETH 30 ML CUP PO PRN (14:45)
[2017-11-09] MEDS ORDERED: ACETAMINOPHEN/HYDROcodone 325 MG/5 MG TAB PO PRN (14:45)
[2017-11-09] MEDS ORDERED: ONDANSETRON ODT 4 MG TAB PO PRN (14:45)
[2017-11-09] MEDS ORDERED: ZOLPIDEM TARTRATE 5 MG TAB PO PRN (14:45)
[2017-11-09] MEDS ORDERED: SODIUM CHLORIDE 0.9% FLUSH 10 ML FLUSH IV FLUSH PRN (14:45)
[2017-11-09] MEDS ORDERED: BENZOCAINE 20% TOPICAL SPRAY 60 ML CAN TOPICAL PRN (14:45)
[2017-11-09] MEDS ORDERED: ACETAMINOPHEN 325 MG TAB PO PRN (14:45)
[2017-11-09] MEDS ORDERED: WITCH HAZEL 50%/GLYCERIN 12.5% 40 PAD JAR TOPICAL PRN (14:45)
[2017-11-09] MEDS ORDERED: DOCUSATE SODIUM 50 MG/SENNA 8.6 MG TAB PO PRN (14:45)
[2017-11-09] MEDS ORDERED: MEASLES, MUMPS, RUBELLA VACCINE 0.5 ML VIAL SQ ONE (16:00)
[2017-11-09] MEDS ORDERED: DIPHTH/TETANUS/ACEL PERTUSSIS (BOOSTER) 0.5 ML VIAL/PFS IM ONE (16:00)
[2017-11-09] MEDS: IBUPROFEN 800 MG TAB PO PRN ×2 (16:17→23:58)
[2017-11-09] MEDS: ACETAMINOPHEN/HYDROcodone 325 MG/5 MG TAB PO PRN (20:06)
[2017-11-09] MEDS ORDERED: SODIUM CHLORIDE 0.9% FLUSH 10 ML FLUSH IV FLUSH SCH (21:00)
[2017-11-10] MEDS: ACETAMINOPHEN/HYDROcodone 325 MG/5 MG TAB PO PRN (04:53)
[2017-11-10 06:32] LABS: AUTOMATED NEUTROPHIL # 8.9 TH/MM3 (1.8-7.7); BASOPHIL % 0.4 % (0.0-2.0); EOSINOPHIL # 0.1 TH/MM3 (0-0.4); EOSINOPHIL % 0.8 % (0.0-4.0); HEMATOCRIT 31.2 % (35.0-46.0); HEMOGLOBIN 10.4 GM/DL (11.6-15.3); LYMPH % 14.6 % (9.0-44.0); LYMPHOCYTE # 1.7 TH/MM3 (1.0-4.8); MEAN CELL VOLUME 89.5 FL (80.0-100.0); MEAN CORPUSCULAR HEMOGLOBIN 29.8 PG (27.0-34.0); MEAN CORPUSCULAR HGB CONC 33.3 % (32.0-36.0); MEAN PLATELET VOLUME 8.2 FL (7.0-11.0); MONOCYTE # 0.7 TH/MM3 (0-0.9); NEUT % 78.2 % (16.0-70.0); PLATELET COUNT 253 TH/MM3 (150-450); RED BLOOD COUNT 3.48 MIL/MM3 (4.00-5.30); RED CELL DISTRIBUTION WIDTH 13.5 % (11.6-17.2); WHITE BLOOD COUNT 11.3 TH/MM3 (4.0-11.0)
[2017-11-10] MEDS: IBUPROFEN 800 MG TAB PO PRN (07:59)
[2017-11-10 08:05] VITALS: BP 102/56; PULSE 73; RESP 18; TEMP 98.1
[2017-11-10] MEDS ORDERED: HYDR-3516 PO (10:01)
--- NOTE | 2017-11-10 10:01 | HHI.DCPOC ---
Discharge Care Plan Report Symptoms to Your Doctor -Temperature above 100.5 degrees -Redness, of incision or excessive or foul smelling drainage -Unusual pain or calf pain -Increased vaginal bleeding -Painful or difficulty urinating -Feelings of extreme sadness or anxiety after 2 weeks Goals to Promote Your Health * To prevent worsening of your condition and complications * To maintain your health at the optimal level Directions to Meet Your Goals Take your medications as prescribed Follow your dietary instruction Follow activity as directed Ensure plenty of rest for recovery Drink fluids for hydration Keep your appointments as scheduled Take your immunizations and boosters as scheduled If your symptoms worsen call your PCP, if no PCP go to Urgent Care Center or Emergency Room Smoking is Dangerous to Your Health. Avoid second hand smoke Call the 24-hour crisis hotline for domestic abuse at Luis Phan MD Nov 10, 2017 10:01
--- NOTE | 2017-11-10 17:53 | MD ---
cc: CONCEPCION JUAN M.D. ADMISSION DATE: 11/09/2017 DISCHARGE DATE: 11/10/2017 ADMISSION DIAGNOSES 1. Term . 2. Advanced maternal age, 37. 3. Gestational diabetes. DISCHARGE DIAGNOSES 1. Term . 2. Advanced maternal age, 37. 3. Gestational diabetes. HISTORY OF PRESENT ILLNESS A 37-year-old, , white female para 1-0-1-1, LMP of 02/09/2017, EDC of 11/16/2017. Her course was benign. labs include Rh positive, VDRL nonreactive, rubella immune, rubeola immune, HATCH negative, Pap negative. Glucose screen elevated and the patient maintained gestational diabetes controlled diet with good control. She had normal cell free DNA testing and normal first TM screen. HOSPITAL COURSE Amitted for induction of labor due to term status, favorable cervix and patient desire for delivery. Progressed to a spontaneous vaginal delivery over a midline episiotomy. A viable vigorous male, Apgars 07/08, weight 7 pounds 12 ounces. did well. Discharged home in excellent condition 11/10/2017. Baby had glucose control issues maintained in the hospital until these equilibrated. She was advised NPV, light activity. Return to see me in 6 weeks. She requested the baby be circumcised prior to discharge is feasible. She will take her vitamins and iron pills at home. She was given a prescription for Lortab 5/325 one to two p.o. q.4h as needed pain, #30. MD HUSSAIN Henderson/GANESH /10:03 AM /5:36 PM HEATH
== END 2017-11-10 15:14 | disposition home or self-care (01) | DRG 775 ==
LOC: H2EB 06:09 → H1EA 16:58
PROVIDERS: ADMIT Obstetrics & Gynecology; ATTEND Obstetrics & Gynecology
PROC: 10E0XZZ Delivery of Products of Conception, External Approach (ICD-10-PCS; principal; 2017-11-09)
DX: O24.420 Gestational diabetes mellitus in childbirth, diet controlled (principal); Z37.0 Single live birth; Z3A.39 39 weeks gestation of pregnancy
CPT/HCPCS: 59025; 80307; 81001; 85025; 87086; J2590; J7120